=== PATIENT | male | born 1960 ===

== ENCOUNTER 2018-09-24 07:00 | Day surgery (SDC) | payer OTHER ==
[~2018-09-24] VITALS: Ht 61 cm; Wt 55.3 kg
[~2018-09-24 07:00] MED LIST: AMILODIPINE PO; COZAAR50 MG PO; CRESTOR5 MG PO
[2018-09-24] MEDS ORDERED: PERCOCET 5-3251 EACH PO (10:15)
== END 2018-09-24 13:00 | disposition home or self-care (01) ==
LOC: CIR.AMB 07:00 → SURH 07:00 → EDSTATUS 11:00 → CIR.AMB 13:00 → O/R 13:00
DX: D35.1 Benign neoplasm of parathyroid gland (principal)